=== PATIENT | female | born 1970 | race African-American/Black ===

== ENCOUNTER 2016-11-18 21:12 | Emergency (ER) | payer OTHER ==
[~2016-11-18] VITALS: Ht 167.6 cm; Wt 92.5 kg
[~2016-11-18 21:12] MED LIST: ADVAIR 250-501 EACH IH; CORTISPORIN OTI10 ML OTIC; IBUPROFEN 600600 M1 PO; KEFLEX500 MG PO; NEXIUM40 MG PO; NORCO 5-325 TA1 EACH PO; PERCOCET 5-3251 EACH; PRILOSEC20 MG
[2016-11-18] MEDS ORDERED: HYDROCHLOROTHIA25 M2 PO (21:22)
[2016-11-18 22:08] LABS: ABSOLUTE NEUTROPHILS 3.7 thou/uL (1.4-8.2); BASOPHILS 0.8 % (0.0-2.0); EOSINOPHILS 2.4 % (0.0-3.0); HEMATOCRIT 37.5 % (37.0-47.0); LYMPHOCYTES 37.1 % (24.0-44.0); MANUAL DIFF NO; MCH 25.7 pg (26.0-34.0); MCHC 31.9 g/dL (28.0-37.0); MCV 80.4 fL (80.0-100.0); MONOCYTES 6.1 % (1.0-8.0); PLATELET COUNT 311 thou/uL (150-400); POLYS 53.6 % (36.0-66.0); RBC 4.66 mil/uL (4.20-5.00); RDW 14.1 % (10.5-14.5); WBC 6.9 thou/uL (4.0-11.0)
[2016-11-18 22:11] LABS: CALCIUM 9.1 mg/dL (8.5-10.1); POTASSIUM 3.6 mmol/L (3.5-5.1)
[2016-11-18 22:16] LABS: ALBUMIN 3.7 g/dL (3.4-5.0); TOTAL BILIRUBIN 0.2 mg/dL (<0.1-1.0); TOTAL PROTEIN 7.4 g/dL (6.4-8.2)
[2016-11-18 22:18] LABS: URINE BILIRUBIN NEGATIVE (Negative); URINE BLOOD NEGATIVE (Negative); URINE COLOR YELLOW; URINE GLUCOSE-RANDOM* NEGATIVE (Negative); URINE KETONES NEGATIVE (Negative); URINE LEUKOCYTES-REFLEX NEGATIVE (Negative); URINE PROTEIN (DIPSTICK) NEGATIVE (Negative); URINE SPECIFIC GRAVITY >= 1.030 (1.003-1.035); URINE UROBILINOGEN 0.2 E.U./dl (0.2-1.0)
[2016-11-18 22:40] VITALS: BP 122/81
[2016-11-18] MEDS ORDERED: SENNA8.6 MG PO (23:09)
== END 2016-11-18 23:20 | disposition home or self-care (01) ==
LOC: ER 21:12
PROVIDERS: Physician Assistant
DX: R10.31 Right lower quadrant pain (principal); R11.2 Nausea with vomiting, unspecified; J45.909 Unspecified asthma, uncomplicated; G47.30 Sleep apnea, unspecified; K21.9 Gastro-esophageal reflux disease without esophagitis; Z90.710 Acquired absence of both cervix and uterus; Z90.49 Acquired absence of other specified parts of digestive tract; Z88.1 Allergy status to other antibiotic agents

== ENCOUNTER → 2017-06-27 | Outpatient (CLI) | payer OTHER ==
[~2017-06-27] MED LIST changes: +HYDROCHLOROTHIA25 M2 PO; +SENNA8.6 MG PO
== END ==
LOC: RAD 14:33
DX: Z12.31 Encounter for screening mammogram for malignant neoplasm of breast (principal)

== ENCOUNTER → 2018-07-18 | Outpatient (CLI) | payer OTHER | LOC: RAD 08:56 | DX: Z12.31 Encounter for screening mammogram for malignant neoplasm of breast (principal) ==

== ENCOUNTER 2018-07-28 10:13 | Emergency (ER) | payer OTHER ==
[~2018-07-28] VITALS: Ht 167.6 cm; Wt 89.4 kg
[2018-07-28 12:42] LABS: ABSOLUTE NEUTROPHILS 2.9 thou/uL (1.4-8.2); BASOPHILS 0.9 % (0.0-2.0); EOSINOPHILS 1.1 % (0.0-3.0); HEMATOCRIT 39.1 % (37.0-47.0); HEMOGLOBIN 12.7 gm/dL (12.0-15.0); LYMPHOCYTES 30.5 % (24.0-44.0); MCH 25.9 pg (26.0-34.0); MCHC 32.4 g/dL (28.0-37.0); MCV 79.9 fL (80.0-100.0); MONOCYTES 10.6 % (1.0-8.0); PLATELET COUNT 307 thou/uL (150-400); POLYS 56.9 % (36.0-66.0); RBC 4.89 mil/uL (4.20-5.00); RDW 14.3 % (10.5-14.5)
[2018-07-28 12:56] LABS: ANION GAP 8 mmol/L (7-16); BUN 14 mg/dL (7-18); CALCIUM 9.1 mg/dL (8.5-10.1); CHLORIDE 102 mmol/L (98-107); CO2 30 mmol/L (21-32); GLUCOSE 110 mg/dL (74-106); POTASSIUM 3.5 mmol/L (3.5-5.1); SODIUM 140 mmol/L (136-145)
[2018-07-28 13:04] LABS: TROPONIN-I <0.06 ng/mL (<0.06)
[2018-07-28 14:16] VITALS: BP 120/69
--- NOTE | 2018-07-29 08:03 | EKG ---
[place] [address] [place] [address] ELECTROCARDIOGRAM REPORT Name: LANA TEMPLETON SEGUN Room #: DEP Lana#: [id number] ������������������ Admission: 07/28/18 ������������������ Attend Phys: Discharge: 07/28/18 ������������������ Date of : 72 Report #: [id number] ����������������������������������������������������������������� [id number] THIS REPORT FOR: //name// 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 : 1970 Requested By: Kwame Medellin Order Number: [id number] MD: Gian Pinzon Measurements Intervals [place] Rate: 64 P: 15 MI: 163 QRS: -20 QRSD: 95 T: -5 QT: 423 QTc: 437 Interpretive Statements Sinus rhythm Multiple ventricular premature complexes Abnormal R-wave progression, late transition Probable left ventricular hypertrophy Compared to ECG 02/29/2004 11:46:54 Ventricular premature complex(es) now present Electronically Signed On 07-29-2018 8:03:32 CDT by Gian Pinzon [email or web address] ��������������������������������������������� <ELECTRONICALLY SIGNED> ���������������������������������������� By: Gian Pinzon MD ��������������������������������������������� 07/29/18 0803 1131 1131 Gian Pinzon MD /EPI
== END 2018-07-28 14:25 | disposition home or self-care (01) ==
LOC: ER 10:13
PROVIDERS: Nurse Practitioner
DX: R07.89 Other chest pain (principal); J45.909 Unspecified asthma, uncomplicated; G47.30 Sleep apnea, unspecified; K21.9 Gastro-esophageal reflux disease without esophagitis; Z90.49 Acquired absence of other specified parts of digestive tract; Z90.710 Acquired absence of both cervix and uterus; Z88.8 Allergy status to other drugs, medicaments and biological substances

== ENCOUNTER → 2018-08-02 | Outpatient (CLI) | payer OTHER ==
[~2018-08-02] MED LIST changes: +B-12500 MCG PO; +MULTIVITAMINS1 EAC7 PO; +ONDANSETRON HCL4 M2 PO; +VITAMIN D3400 UNIT PO
== END ==
LOC: RAD 05:55
DX: M77.52 Other enthesopathy of left foot and ankle (principal); M77.51 Other enthesopathy of right foot and ankle

== ENCOUNTER → 2018-08-05 | Emergency (ER) | payer OTHER ==
[2018-08-05 21:02] VITALS: BP 134/85
[2018-08-05 21:24] LABS: URINE BILIRUBIN NEGATIVE (Negative); URINE BLOOD NEGATIVE (Negative); URINE CLARITY CLEAR; URINE COLOR YELLOW; URINE GLUCOSE-RANDOM* NEGATIVE (Negative); URINE KETONES NEGATIVE (Negative); URINE LEUKOCYTES-REFLEX NEGATIVE (Negative); URINE NITRITE-REFLEX NEGATIVE (Negative); URINE PROTEIN (DIPSTICK) NEGATIVE (Negative); URINE SPECIFIC GRAVITY 1.025 (1.005-1.035); URINE UROBILINOGEN 0.2 E.U./dl (0.2-1.0)
== END ==
LOC: ER 20:58
PROVIDERS: Nurse Practitioner Family
DX: Z53.21 Procedure and treatment not carried out due to patient leaving prior to being seen by health care provider (principal)

== ENCOUNTER → 2018-08-06 | Outpatient (CLI) | payer OTHER | LOC: CAT 08:55 | DX: N20.0 Calculus of kidney (principal); K76.89 Other specified diseases of liver; Z90.49 Acquired absence of other specified parts of digestive tract ==

== ENCOUNTER → 2019-01-24 | Outpatient (CLI) | payer OTHER ==
[~2019-01-24] MED LIST changes: +LOSARTAN-HCTZ1 EACH PO
--- NOTE | 2019-01-28 22:56 | SLE ---
[facility] [place] [address] POLYSOMNOGRAPHY STUDY Name: LANA TEMPLETON Room #: REG EMILY [facility]#: [id number] Admission: 01/24/19 Attend Phys: Shaq Hernandez MD Discharge: Date of : 72 Report #: [id number] THIS REPORT FOR: //name// CC: Shaq Forbes DATE OF SERVICE: 01/24/2019 SLEEP STUDY REFERRING PHYSICIAN: Dr. Nash Platt. The patient is 48-year-old who weighs 220 pounds with a BMI of 36.6. The patient's Richmond score was 10. The patient underwent split night study performed at [facility]. During the night study, the patient spent 497 minutes in bed and slept for 407 minutes with a sleep efficiency of 82%. Sleep latency was 30 minutes with a REM latency of 67 minutes. Sleep architecture showed normal stage 1 sleep, increased stage 2 sleep, reduced slow wave and normal REM sleep. During the initial diagnostic portion of the study, the patient slept for 126 minutes. During that time, there were 11 obstructive apneas, no mixed or central apneas and 72 hypopneas. The patient's apnea hypopnea index was 39.5 per hour with a REM index of 3.4 per hour and a supine index of 50 per hour. EKG monitoring revealed an average heart rate of 75 beats per minute. No sustained arrhythmias observed. PLMS were seen at an index of 13 per hour and 1 per hour caused EEG arousals. Nocturnal oximetry study revealed an average oxygen saturation of 96% with a lowest of 88%. Only 1 minute was spent in oxygen saturation of less than 89%. The patient was started on CPAP at a pressure of 7 cm water and titrated up to 14 cm water. At the final pressure, the patient slept for 111 minutes including 26 minutes of supine REM sleep. The patient's AHI was reduced to 0 per hour and oxygen saturation remained above 95%. IMPRESSION: 1. Severe sleep apnea-hypopnea syndrome at an AHI of 39.5 per hour. 2. No clinically significant nocturnal hypoxia. 3. Mild PLMs without any significant EEG arousals. This does not need to be treated. [facility] [address] [place] [address] POLYSOMNOGRAPHY STUDY Name: LANA TEMPLETON SEGUN [facility]: [facility] [id number] Admission: 01/24/19 Attend Phys: Shaq Hernandez MD Discharge: Date of : 72 Report #: [id number] RECOMMENDATIONS: 1. CPAP at 14 cm water completely eliminated the patient's sleep apnea and should be used on a nightly basis. 2. Follow up in 4-6 weeks to assess compliance with CPAP and to document clinical improvement. 3. Weight loss is strongly advised. 4. Avoid C[employer] PROVIDER depressants. 5. Cautioned regarding driving until symptoms of sleep apnea resolve with the use of CPAP. <ELECTRONICALLY SIGNED> By: Shaq Hernandez MD 01/28/19 2256 1448 1519 Shaq Hernandez MD /nt
== END ==
LOC: SLEEPLAB 11:48
DX: G47.33 Obstructive sleep apnea (adult) (pediatric) (principal); G47.34 Idiopathic sleep related nonobstructive alveolar hypoventilation

== ENCOUNTER 2019-01-25 07:57 | Emergency (ER) | payer OTHER ==
[~2019-01-25] VITALS: Ht 165.1 cm; Wt 98.4 kg
[~2019-01-25 07:57] MED LIST changes: -LOSARTAN-HCTZ1 EACH PO
[2019-01-25 07:58] VITALS: BP 128/88
[2019-01-25] MEDS ORDERED: LOSARTAN-HCTZ1 EACH PO (08:16)
== END 2019-01-25 08:25 | disposition home or self-care (01) ==
LOC: ER 07:57
DX: G89.29 Other chronic pain (principal); M79.602 Pain in left arm; R51 Headache; J45.909 Unspecified asthma, uncomplicated; K21.9 Gastro-esophageal reflux disease without esophagitis; Z88.1 Allergy status to other antibiotic agents; Z79.899 Other long term (current) drug therapy; Z90.710 Acquired absence of both cervix and uterus; Z90.49 Acquired absence of other specified parts of digestive tract

== ENCOUNTER 2019-03-13 15:59 | Emergency (ER) | payer OTHER ==
[~2019-03-13] VITALS: Ht 165.1 cm; Wt 96.6 kg
[~2019-03-13 15:59] MED LIST changes: +LOSARTAN-HCTZ1 EACH PO
[2019-03-13] MEDS ORDERED: ASA81BEC PO (16:12)
[2019-03-13 16:31] LABS: URINE BILIRUBIN NEGATIVE (Negative); URINE BLOOD NEGATIVE (Negative); URINE CLARITY CLEAR; URINE COLOR YELLOW; URINE GLUCOSE-RANDOM* NEGATIVE (Negative); URINE KETONES NEGATIVE (Negative); URINE LEUKOCYTES-REFLEX NEGATIVE (Negative); URINE NITRITE-REFLEX NEGATIVE (Negative); URINE PROTEIN (DIPSTICK) NEGATIVE (Negative); URINE UROBILINOGEN 0.2 E.U./dl (0.2-1.0)
[2019-03-13 16:44] LABS: ABSOLUTE NEUTROPHILS 3.8 thou/uL (1.4-8.2); BASOPHILS 1.1 % (0.0-2.0); EOSINOPHILS 1.6 % (0.0-3.0); HEMATOCRIT 40.4 % (37.0-47.0); HEMOGLOBIN 12.8 gm/dL (12.0-15.0); LYMPHOCYTES 33.3 % (24.0-44.0); MCH 25.8 pg (26.0-34.0); MCHC 31.8 g/dL (28.0-37.0); MCV 81.3 fL (80.0-100.0); MONOCYTES 6.4 % (1.0-8.0); PLATELET COUNT 344 thou/uL (150-400); POLYS 57.6 % (36.0-66.0); RBC 4.98 mil/uL (4.20-5.00); RDW 14.5 % (10.5-14.5); WBC 6.5 thou/uL (4.0-11.0)
[2019-03-13 16:59] LABS: ALBUMIN 4.2 g/dL (3.4-5.0); CALCIUM 9.2 mg/dL (8.5-10.1); CREATININE 1.1 mg/dL (0.6-1.0); POTASSIUM 3.6 mmol/L (3.5-5.1); TOTAL BILIRUBIN 0.3 mg/dL (<0.1-1.0); TOTAL PROTEIN 8.7 g/dL (6.4-8.2)
--- NOTE | 2019-03-13 17:16 | EKG ---
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 : 1970 Requested By: Nilton Green Order Number: [id number] MD: Silviano Mejia Measurements Intervals [place] Rate: 63 P: 36 MT: 156 QRS: -7 QRSD: 89 T: 12 QT: 424 QTc: 435 Interpretive Statements Sinus rhythm Nonspecific ST segment abnormality Compared to ECG 07/28/2018 11:31:58 Ventricular premature complex(es) no longer present Electronically Signed On 03-13-2019 17:15:33 BANANA GRADER by Silviano Mejia [email or web address] <ELECTRONICALLY SIGNED> By: Silviano Mejia MD, [facility] 03/13/19 1715 1658 1658 Silviano Mejia MD, FACC /EPI
[2019-03-13] MEDS ORDERED: BUTALB-APAP-CA1 EACH PO ×2 (19:03→19:24)
[2019-03-13 19:26] VITALS: BP 129/84
== END 2019-03-13 19:36 | disposition home or self-care (01) ==
LOC: ER 15:59
PROVIDERS: Emergency Medicine; Physician Assistant
DX: R51 Headache (principal); R42 Dizziness and giddiness; K21.9 Gastro-esophageal reflux disease without esophagitis; G47.30 Sleep apnea, unspecified; Z88.6 Allergy status to analgesic agent; Z88.8 Allergy status to other drugs, medicaments and biological substances; Z90.49 Acquired absence of other specified parts of digestive tract

== ENCOUNTER → 2019-04-08 | Outpatient (CLI) | payer OTHER ==
[~2019-04-08] MED LIST changes: +ASA81BEC PO; +BUTALB-APAP-CA1 EACH PO
== END ==
LOC: SJCVCIMAG 03-07 13:24
DX: I07.1 Rheumatic tricuspid insufficiency (principal); I10 Essential (primary) hypertension; D32.9 Benign neoplasm of meninges, unspecified; Z90.710 Acquired absence of both cervix and uterus

== ENCOUNTER → 2019-05-19 | Outpatient (CLI) | payer OTHER | LOC: RAD 15:24 | DX: R05 Cough (principal) ==

== ENCOUNTER → 2019-07-17 | Outpatient (CLI) | payer OTHER ==
[~2019-07-17] VITALS: Ht 167.6 cm; Wt 98.0 kg
[~2019-07-17] MED LIST changes: +HYDROCHLOROTH12.5 M2 PO; +OMEPRAZOLE 20 M20 M1 PO; +TOPAMAX100 MG PO
--- NOTE | ~2019-07-17 | P ---
[facility] [address] PROCEDURE REPORT Name: LANA TEMPLETON Room #: REG EMILY Pipe#: [id number] Admission: 07/17/19 Attend Phys: Renny Ceja MD Discharge: Date of : 72 Report #: [id number] THIS REPORT FOR: cc: Deneen Sultana Beth RNP Thesing,Renny Alvarenga MD ~ CC: eDneen Ceja BRIEF HISTORY: The patient is a 48-year-old woman who has a history of reflux symptoms. She has been on omeprazole, but continues with bouts of regurgitation, tickle in her throat and some coughing. She also has intermittent solid food dysphagia. PREOPERATIVE DIAGNOSES: Reflux, not controlled on current PPI therapy and solid food dysphagia. POSTOPERATIVE DIAGNOSES: 1. Moderate antral gastritis. 2. Schatzki ring. MEDICATIONS: Deep sedation with propofol per Anesthesia. SPECIMEN: Biopsies of gastritis. ESTIMATED BLOOD LOSS: 3 mL. PROCEDURE: EGD with biopsy and Garcia dilation. FINDINGS: Prior to propofol sedation, procedure of upper endoscopy and dilation was discussed with the patient as well as potential risks and its complications. She indicates she understands and desires to proceed. DESCRIPTION OF PROCEDURE: With the patient in left lateral decubitus position, the Olympus video endoscope was inserted in the cervical esophagus under direct vision without difficulty. Examination of this organ through its entire length revealed normal esophageal mucosa down the squamocolumnar junction. Squamocolumnar junction was intact. There was no evidence of Beal mucosa, esophagitis, strictures or mass lesions. However, intermittently, especially when she coughed, a modest Schatzki ring was seen. A significant hiatus hernia was not seen. The scope was advanced into the stomach, was examined on end view as well as retroflexed views. In the antrum, there was patchy erythema consistent with moderate erythematous antral gastritis. No ulcers or erosions were seen. No bleeding lesions were seen. Upon retroflexion, no mass lesions were seen. In the body of the stomach, there was a small amount of bile which was aspirated away. The pylorus, duodenal bulb and postbulbar duodenal sweep [facility] [address] [place] [address] PROCEDURE REPORT Name: LANA TEMPLETON Room #: REG [facility].#: [id number] Admission: 07/17/19 Attend Phys: Renny Ceja MD Discharge: Date of : 72 Report #: [id number] were inspected and noted to be unremarkable. At that point, the scope was slowly withdrawn and careful circumferential views confirmed the above findings. The patient tolerated the procedure well. Subsequently, she was dilated with passage of a 52-Tajik Garcia dilator. There was no resistance. CONDITION OF THE PATIENT UPON DISCHARGE: Following procedure, the patient drowsy and prepared for colonoscopy. INSTRUCTIONS TO THE PATIENT AND FAMILY AT THE TIME OF DISCHARGE: She has reflux symptoms, but not esophagitis, on current PPI therapy. We will increase her omeprazole to 40 mg twice daily. If she is no better, she will return to see me in followup in the office in 6 weeks. She does have a Schatzki ring and she should return as needed for dilation due to recurrent symptoms of dysphagia. Weight loss would be helpful. The patient instructed on antireflux measures. By: 0919 1452 Renny Ceja MD /nt
--- NOTE | ~2019-07-17 | P ---
[facility] [place] [address] PROCEDURE REPORT Name: LANA TEMPLETON Room #: REG EMILY [facility].#: [id number] Admission: 07/17/19 Attend Phys: Renny Ceja MD Discharge: Date of : 72 Report #: [id number] THIS REPORT FOR: cc: Deneen Sultana Beth RNP Thesing,Renny Alvarenga MD ~ CC: Deneen Ceja OUTPATIENT COLONOSCOPY REPORT BRIEF HISTORY: The patient is a 48-year-old woman who has had complaints of abdominal pain in particular right lower quadrant abdominal pain. She does have a history of previous abdominal and pelvic surgery. She had a recent CT, which showed thickening of the colon suggestive of a pancolitis. There is a questionable history of ulcerative colitis in the past, but this could not be confirmed. PREOPERATIVE DIAGNOSIS: Abnormal CT of the colon and chronic abdominal pain. POSTOPERATIVE DIAGNOSES: 1. Colon polyp. 2. Otherwise, normal appearing colonic mucosa. 3. Normal distal terminal ileum. MEDICATIONS: Deep sedation with propofol per anesthesia. SPECIMENS: 1. Polyp from proximal transverse colon. 2. Random biopsies of proximal colon, rule out colitis. 3. Random biopsies of distal colon, rule out colitis. ESTIMATED BLOOD LOSS: 3 mL. PROCEDURE: Colonoscopy to cecum and terminal ileum with biopsy. FINDINGS: Prior to propofol sedation, procedure of colonoscopy was reviewed with the patient as well as potential risks and its complications. She indicates she understands and desires to proceed. DESCRIPTION OF PROCEDURE: With the patient in left lateral decubitus position, digital examination was completed, which revealed no abnormalities. Subsequently, the Olympus video colonoscope was introduced into the rectum, advanced under direct vision to the cecum. Done with minimal difficulty. The cecum was identified by the ileocecal valve and the appendiceal orifice. I was able to advance the scope and examined about the distal 10-12 inches of the [facility] [address] [place] [address] PROCEDURE REPORT Name: LANA TEMPLETON Room #: REG [facility].#: [id number] Admission: 07/17/19 Attend Phys: Renny Ceja MD Discharge: Date of : 72 Report #: [id number] terminal ileum. It was completely normal. There was no evidence of inflammatory bowel disease. At that point, the scope was slowly withdrawn and careful circumferential views were obtained. Scope was withdrawn throughout the colon. The prep was good. The mucosa was within normal limits, normal vascular pattern, and normal light reflex. With regards to the abnormal CT, I did not see endoscopic evidence of colitis. In addition, the mucosa was not thickened. She had normal colonic mucosa throughout the entire colon. Random biopsies were obtained of the proximal as well as the distal colon. In addition, the proximal transverse colon, a diminutive polyp was seen and removed with biopsy forceps. Scope was further withdrawn and no additional abnormalities were seen. Upon retroflex in the rectum, no abnormalities were seen. Scope was withdrawn. The patient tolerated the procedure well. CONDITION OF THE PATIENT UPON DISCHARGE: Following procedure, the patient was drowsy. She will be discharged home when fully ambulatory. INSTRUCTIONS TO THE PATIENT AND FAMILY AT THE TIME OF DISCHARGE: The patient with above-mentioned findings. I do not see evidence of colitis. We will follow up on the polyp and if this is an adenoma as I suspect, she is to return in 5 years for a surveillance colonoscopy. As for the abnormal CT, I do not see evidence of inflammatory bowel disease. We will follow up on biopsies and make further recommendations. She does have chronic pain and this may be related to her previous surgeries. We will place her on dicyclomine 10-20 mg every 6 hours as needed for abdominal pain. In addition, she does complain of increased stool frequency. Fiber supplementation may be helpful. It is noted she did have some bilious material in her stomach and she may benefit from a bile sequestering agent with regards to her stomach as well as her stool frequency. We will have her return to see me in followup in the office about 6 weeks. Withdrawal time from the cecum was 8 minutes 56 seconds. By: 0946 1557 Renny Ceja MD /chasity
--- NOTE | 2019-07-17 09:27 | EKG ---
[facility] [place] [place] [address] ELECTROCARDIOGRAM REPORT Name: LANA TEMPLETON Room #: REG [facility].#: [id number] Admission: 07/17/19 Attend Phys: Renny Ceja MD Discharge: Date of : 72 Report #: [id number] THIS REPORT FOR: cc: Deneen Sultana Beth RNP Lundgren, Craig H. 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 : 1970 Requested By: Avril Romero Order Number: [id number] MD: Silviano Mejia Measurements Intervals [place] Rate: 65 P: 45 ME: 160 QRS: -17 QRSD: 92 T: 25 QT: 445 QTc: 463 Interpretive Statements Sinus rhythm Occasional premature ventricular complexes Poor R wave progression Compared to ECG 03/13/2019 16:58:27 Ventricular premature complex(es) now present Electronically Signed On 07-17-2019 9:25:53 CDT by Silviano Mejia [email or web address] <ELECTRONICALLY SIGNED> By: Silviano Mejia MD, [facility] 07/17/19 0925 0857 0857 Silviano Mejia MD, [facility] /EPI
--- NOTE | 2019-07-21 15:13 | PATH ---
[facility] [address] [place] [address] PATHOLOGY RPT PROCEDURE Name: LANA ORTIZ Room #: REG EMILY [facility]#: [id number] Admission: 07/17/19 Date of : 72 Discharge: Report #: [id number] Path Case #: [id number] [facility] Accession Number: [id number] . 01 Material submitted: . PART A: stomach - BIOPSY OF GASTRITIS R/O H. PYLORI PART B: colon - POLYP AT PROXIMAL TRANSVERSE COLON BIOPSY. Modifiers: proximal, transverse PART C: colon - RANDOM BIOPSY PROXIMAL COLON R/O COLITIS. Modifiers: proximal PART D: colon - RANDOM BIOPSY DISTAL COLON R/O COLITIS. Modifiers: distal . 01 Clinical history: . Pre-op diagnosis: Reflux' ulcerative colitis Post-op diagnosis: Gastritis, Schatzki's ring, colon polyp A: R/O H. pylori C/D: R/O colitis; abnormal CT of colon . 02 Diagnosis: A. Gastric biopsy "biopsy of gastritis, rule out H. pylori": - Mild chronic reactive gastropathy with mild chronic inflammation. - The immunoperoxidase for Helicobacter pylori is negative. . B. Colonic mucosa "polyp at proximal transverse colon": - Tubular adenoma. - There is no evidence of high-grade dysplasia or malignancy. . C. Colonic mucosa "random biopsy proximal colon": - No obvious diagnostic changes. - There is no evidence of acute cryptitis, granulomas, adenomatous change, changes of ulcerative colitis or malignancy. . D. Colonic mucosa "random biopsy distal colon": - No obvious diagnostic changes. - There is no evidence of acute cryptitis, granulomas, adenomatous change, changes of microscopic colitis, ulcerative colitis or malignancy. ([facility] 07/21/2019) [facility] 07/21/2019 1026 Local . 02 Electronically signed: . Juan Alberto Barboza MD, Pathologist NPI- [id number] . 01 Gross description: . A. The specimen is received in formalin, labeled "Lana Ortiz, biopsy of gastritis, R/O H. pylori". Received are four segments of pale alamo soft tissue ranging in size from 0.3 to 0.4 cm in maximum dimensions. The [address] [address] PATHOLOGY RPT PROCEDURE Name: LANA ORTIZ Room #: REG CLAlan Schwartz#: [id number] Admission: 07/17/19 Date of : 72 Discharge: Report #: [id number] Path Case #: [id number] specimen is submitted entirely in cassette A1. . B. The specimen is received in formalin, labeled "Tinnette Glass, polyp at proximal transverse colon". Received are four segments of pale [place]amo soft tissue ranging in size from 0.2 to 0.4 cm in maximum dimensions. The specimen is submitted entirely in cassette B1. . C. The specimen is received in formalin, labeled "Tinnette Glass, random biopsy of proximal colon, R/O colitis". Received are five segments of pale [place]amo soft tissue ranging in size from 0.3 to 0.9 cm in maximum dimensions. The specimen is submitted entirely in cassette C1. . D. The specimen is received in formalin, labeled "Tinnette Glass, random biopsy distal colon, R/O colitis". Received are five segments of pale alamo soft tissue measuring 0.3 cm each in maximum dimensions. The specimen is submitted entirely in cassette D1. ([facility]; 07/18/2019) QA/QA 07/18/2019 1310 Local . 02 Pathologist provided ICD-10: K29.50, K31.9, D12.3 . 02 CPT . 836801, 921341, 484386, 980799, F08405 Specimen Comment: A courtesy copy of this report has been sent to [phone] Specimen Comment: [id number] Specimen Comment: Report sent to / DR MEDINA Performed at: [address] [facility], [place], [place] [id number] MD Obdulio Rojas MD Phone: [phone] Performed at: [address] [facility] [id number] MD Stephanie Martin MD Phone: [phone]
== END | disposition home or self-care (01) ==
LOC: GI 05-05 15:24
DX: R10.9 Unspecified abdominal pain (principal); R93.3 Abnormal findings on diagnostic imaging of other parts of digestive tract; D12.3 Benign neoplasm of transverse colon; K29.50 Unspecified chronic gastritis without bleeding; K22.2 Esophageal obstruction; G89.29 Other chronic pain; K21.9 Gastro-esophageal reflux disease without esophagitis; Z98.890 Other specified postprocedural states; Z79.899 Other long term (current) drug therapy; Z90.49 Acquired absence of other specified parts of digestive tract; Z11.59 Encounter for screening for other viral diseases; Z88.8 Allergy status to other drugs, medicaments and biological substances
CPT/HCPCS: 62110; 62900

== ENCOUNTER → 2019-09-24 | Outpatient (CLI) | payer OTHER | LOC: CAT 09:00 | PROVIDERS: ATTEND Nurse Practitioner | DX: R19.03 Right lower quadrant abdominal swelling, mass and lump (principal); R10.31 Right lower quadrant pain ==

== ENCOUNTER → 2019-10-02 | Outpatient (CLI) | payer OTHER | LOC: ULTRA 07:36 | PROVIDERS: ATTEND Nurse Practitioner | DX: R16.0 Hepatomegaly, not elsewhere classified (principal); K86.2 Cyst of pancreas; Z90.49 Acquired absence of other specified parts of digestive tract ==

== ENCOUNTER → 2019-11-11 | Outpatient (CLI) | payer OTHER | LOC: LAB 14:26 | PROVIDERS: ATTEND Family Medicine | DX: Z01.812 Encounter for preprocedural laboratory examination (principal); Z20.828 Contact with and (suspected) exposure to other viral communicable diseases ==

== ENCOUNTER → 2019-12-03 | Outpatient (CLI) | payer OTHER | LOC: RAD 12:36 | PROVIDERS: ATTEND Nurse Practitioner | DX: Z12.31 Encounter for screening mammogram for malignant neoplasm of breast (principal) ==

== ENCOUNTER → 2019-12-08 | Outpatient (CLI) | payer OTHER | LOC: ULTRA 11:12 | PROVIDERS: ATTEND Nurse Practitioner | DX: N64.89 Other specified disorders of breast (principal) ==

== ENCOUNTER → 2020-01-12 | Outpatient (CLI) | payer OTHER | LOC: LAB 11:19 | PROVIDERS: ATTEND Nurse Practitioner | DX: Z20.828 Contact with and (suspected) exposure to other viral communicable diseases (principal) ==

== ENCOUNTER → 2020-02-05 | Outpatient (CLI) | payer OTHER | LOC: RAD 06:24 | PROVIDERS: ATTEND Internal Medicine Gastroenterology | DX: R19.5 Other fecal abnormalities (principal) ==

== ENCOUNTER → 2020-06-14 | Outpatient (CLI) | payer OTHER ==
[2020-06-14 08:32] LABS: ABSOLUTE NEUTROPHILS 3.2 thou/uL (1.4-8.2); BASOPHILS 0.5 % (0.0-2.0); EOSINOPHILS 1.8 % (0.0-3.0); HEMATOCRIT 41.8 % (37.0-47.0); HEMOGLOBIN 13.4 gm/dL (12.0-15.0); LYMPHOCYTES 38.1 % (24.0-44.0); MONOCYTES 5.8 % (1.0-8.0); PLATELET COUNT 352 thou/uL (150-400); POLYS 53.8 % (36.0-66.0); RBC 5.16 mil/uL (4.20-5.00); RDW 14.4 % (10.5-14.5); WBC 5.9 thou/uL (4.0-11.0)
[2020-06-14 08:34] LABS: URINE BILIRUBIN NEGATIVE (Negative); URINE BLOOD NEGATIVE (Negative); URINE CLARITY CLEAR; URINE COLOR YELLOW; URINE GLUCOSE-RANDOM* NEGATIVE (Negative); URINE KETONES NEGATIVE (Negative); URINE LEUKOCYTES-REFLEX NEGATIVE (Negative); URINE NITRITE-REFLEX NEGATIVE (Negative); URINE PROTEIN (DIPSTICK) NEGATIVE (Negative); URINE SPECIFIC GRAVITY >= 1.030 (1.005-1.035); URINE UROBILINOGEN 0.2 E.U./dl (0.2-1.0)
[2020-06-14 08:49] LABS: ALBUMIN 4.3 g/dL (3.4-5.0); ANION GAP 10 mmol/L (7-16); BUN 13 mg/dL (7-18); CALCIUM 9.3 mg/dL (8.5-10.1); CHLORIDE 103 mmol/L (98-107); CHOLESTEROL 218 mg/dL (<200); CO2 27 mmol/L (21-32); CREATININE 1.1 mg/dL (0.6-1.0); GLUCOSE 108 mg/dL (74-106); HDL CHOLESTEROL 50 mg/dL (>40); LDL CHOLESTEROL 147 mg/dL (<100); SGOT 18 U/L (15-37); SGPT 49 U/L (30-65); SODIUM 140 mmol/L (136-145); TC:HDL 4.4 Ratio (Not establshd); TOTAL BILIRUBIN 0.4 mg/dL (0.2-1.0); TOTAL PROTEIN 8.3 g/dL (6.4-8.2); TRIGLYCERIDE 105 mg/dL (<150); VLDL 21 mg/dL (<40)
== END ==
LOC: LAB 07:42
PROVIDERS: ATTEND Nurse Practitioner
DX: Z00.00 Encounter for general adult medical examination without abnormal findings (principal)

== ENCOUNTER → 2020-07-08 | Outpatient (CLI) | payer OTHER ==
[2020-07-08 11:04] LABS: HEMATOCRIT 39.9 % (37.0-47.0); HEMOGLOBIN 12.7 gm/dL (12.0-15.0); MCH 25.9 pg (26.0-34.0); MCHC 31.9 g/dL (28.0-37.0); MCV 81.4 fL (80.0-100.0); PLATELET COUNT 328 thou/uL (150-400); RDW 14.8 % (10.5-14.5); WBC 5.3 thou/uL (4.0-11.0)
[2020-07-08 11:24] LABS: % SATURATION 17 % (20-39); IRON 54 ug/dL (50-170); TIBC 320 ug/dL (250-450)
[2020-07-08 11:25] LABS: ALBUMIN 3.9 g/dL (3.4-5.0); ANION GAP 8 mmol/L (7-16); BUN 12 mg/dL (7-18); CHLORIDE 104 mmol/L (98-107); CHOLESTEROL 212 mg/dL (<200); CO2 28 mmol/L (21-32); CREATININE 0.9 mg/dL (0.6-1.0); GLUCOSE 98 mg/dL (74-106); HDL CHOLESTEROL 50 mg/dL (>40); LDL CHOLESTEROL 138 mg/dL (<100); POTASSIUM 4.1 mmol/L (3.5-5.1); SGOT 19 U/L (15-37); SGPT 44 U/L (30-65); SODIUM 140 mmol/L (136-145); TC:HDL 4.2 Ratio (Not establshd); TOTAL BILIRUBIN 0.3 mg/dL (0.2-1.0); TRIGLYCERIDE 122 mg/dL (<150); VLDL 24 mg/dL (<40)
[2020-07-08 11:50] LABS: ABSOLUTE NEUTROPHILS 2.3 thou/uL (1.4-8.2); PLATELET ESTIMATE NORMAL
[2020-07-08 14:16] LABS: FOLIC ACID 76.9 ng/mL (8.6-58.9)
[2020-07-09 00:06] LABS: GLYCOHEMOGLOBIN (HGB A1C) 6.2 % (4.8-5.6)
== END ==
LOC: LAB 09:36
PROVIDERS: ATTEND Surgery
DX: Z79.899 Other long term (current) drug therapy (principal)

== ENCOUNTER → 2020-10-07 | Outpatient (CLI) | payer OTHER | LOC: CAT 08:58 | PROVIDERS: ATTEND Nurse Practitioner | DX: K86.9 Disease of pancreas, unspecified (principal) ==

== ENCOUNTER → 2020-10-08 | Outpatient (CLI) | payer OTHER ==
[2020-10-08 09:53] LABS: CREATININE 1.1 mg/dL (0.6-1.0)
== END ==
LOC: CAT 07:29
PROVIDERS: ATTEND Psychiatry & Neurology Neuromuscular Medicine
DX: R55 Syncope and collapse (principal); R51.9 Headache, unspecified; M47.812 Spondylosis without myelopathy or radiculopathy, cervical region

== ENCOUNTER → 2020-11-24 | Outpatient (CLI) | payer OTHER | LOC: ULTRA 08:26 | PROVIDERS: ATTEND Internal Medicine Gastroenterology | DX: K86.89 Other specified diseases of pancreas (principal) ==